=== PATIENT | male | born 1955 | race Caucasian/White ===

== ENCOUNTER 2021-12-19 09:43 | Outpatient (CLI) | payer MEDICARE, OTHER ==
[2021-12-19 11:32] LABS: #Eosinphils 0.5 10x3/uL (0.0-0.5); #Monocytes 0.6 10x3/uL (0.0-1.1); #Neutrophils 3.2 10x3/uL (1.5-8.4); %Basophils 0.6 % (0.0-2.0); %Eosinophils 7.6 % (0.0-6.0); %Lymphocytes 32.9 % (18.0-47.0); %Monocytes 9.1 % (0.0-10.0); %Neutrophils 49.3 % (40.0-75.0); Hemoglobin 16.3 g/dL (13.5-17.5); Mean Corpuscular HGB CONC 33.7 g/dL (32.0-36.0); Mean Corpuscular Hemoglobin 31.8 pg (27.0-33.0); Mean Corpuscular Volume 94.5 fl (81.2-95.1); Mean Platelet Volume 11.6 fl (7.4-10.4); Platelet Count 207 10x3/uL (150-450); RBC Distribution Width 13.3 % (11.5-14.5); Red Blood Cell (RBC) Count 5.12 10x6/uL (4.32-5.72); White Blood Cell (WBC) Count 6.6 10x3/uL (3.5-10.5)
[2021-12-19 11:35] LABS: Anion Gap 16 mmol/L (10-20); BUN (Urea Nitrogen) 13 mg/dL (8.4-25.7); Calc. Creatinine Clearance 0 mL/min (70-130); Carbon Dioxide 23 mmol/L (23-31); Chloride 106 mmol/L (98-107); Estimated GFR 98; Glucose 91 mg/dL (80-115); Potassium 4.9 mmol/L (3.5-5.1); Sodium 140 mmol/L (136-145)
[2021-12-19 11:42] LABS: INR-International Normal Ratio 0.9; Prothrombin Time 10.1 sec (9.5-12.1)
== END 2021-12-19 09:44 | disposition home or self-care (01) ==
LOC: LABBT 09:43
PROVIDERS: ATTEND Orthopaedic Surgery
DX: Z01.818 Encounter for other preprocedural examination (principal); M17.12 Unilateral primary osteoarthritis, left knee; Z20.822 Contact with and (suspected) exposure to COVID-19
CPT/HCPCS: 80048; 85025; 85610; 87081; 87811; 93005; 93010

== ENCOUNTER 2021-12-24 06:14 | Observation (INO) | payer MEDICARE, OTHER ==
[2021-12-20 10:30] VITALS: BMI 35.4
[2021-12-24] MEDS ORDERED: Sodium Chloride 0.9% 100 ML ONE ×2 (07:50→09:00)
[2021-12-24] MEDS ORDERED: Vancomycin (BATCH) 1.5 GRAM/300 ML BAG ONE (07:50)
[2021-12-24] MEDS ORDERED: Tranexamic Acid 1,000 MG/10 ML VIAL ONE (07:50)
[2021-12-24] MEDS ORDERED: Midazolam HCl 2 mg/2 ml Vial ONE (08:03)
[2021-12-24] MEDS ORDERED: Fentanyl 100 MCG/2 ML VIAL ONE ×2 (08:03→11:08)
[2021-12-24] MEDS ORDERED: Acetaminophen 325 MG TAB PO PRN (08:54)
[2021-12-24] MEDS ORDERED: Zolpidem Tartrate 5 MG TAB PO PRN ×2 (08:54→09:30)
[2021-12-24] MEDS ORDERED: Promethazine HCl 25 MG/ML VIAL IM PRN ×2 (08:54→09:30)
[2021-12-24] MEDS ORDERED: HYDROcodone/Acetaminophen 10/325 mg Tablet PO PRN ×3 (08:54→09:30)
[2021-12-24] MEDS ORDERED: Ondansetron PF 4 MG/2 ML Vial IVP PRN ×2 (08:54→09:30)
[2021-12-24] MEDS ORDERED: Fentanyl 100 MCG/2 ML VIAL SLOW IVP PRN ×3 (08:54→09:25)
[2021-12-24] MEDS ORDERED: diphenhydrAMINE 25 MG CAP PO PRN (08:54)
[2021-12-24] MEDS ORDERED: fentaNYL Citrate/PF 100 MCG/2 ML SYRINGE ONE ×2 (09:00→09:39)
[2021-12-24] MEDS ORDERED: Non-Formulary Item 1 EACH (Multivitamin [Multivitamin] 1 EACH Tablet) PO SCH (09:00)
[2021-12-24] MEDS ORDERED: CEFAZOLIN 2 GM VIAL ONE (09:00)
[2021-12-24] MEDS ORDERED: Aspirin 81 mg Enteric Coated Tablet PO SCH (09:00)
[2021-12-24] MEDS ORDERED: Bupivacaine PF 0.5% 30 ML VIAL ONE (09:00)
[2021-12-24] MEDS ORDERED: Ketorolac Tromethamine 30 MG/ML VIAL ONE (09:15)
[2021-12-24] MEDS ORDERED: Ondansetron PF 4 MG/2 ML Vial ONE (09:15)
[2021-12-24] MEDS ORDERED: ePHEDrine 50 MG/ML VIAL ONE (09:15)
[2021-12-24] MEDS ORDERED: Lidocaine 1% PF 5 ML VIAL ONE (09:15)
[2021-12-24] MEDS ORDERED: PROPOFOL 200 MG/20 ML VIAL ONE (09:15)
[2021-12-24] MEDS ORDERED: Dexamethasone 20 MG/5 ML VIAL ONE (09:15)
[2021-12-24] MEDS ORDERED: traMADol HCl 50 MG TAB PO PRN ×2 (09:30)
[2021-12-24] MEDS ORDERED: Ropivacaine 0.2% 550 ML 550 ML NERVE BLCK SCH (09:30)
[2021-12-24] MEDS ORDERED: HYDROmorphone 2 MG/ML VIAL SLOW IVP PRN (09:53)
[2021-12-24] MEDS ORDERED: Promethazine HCl 25 MG/ML VIAL IVPB PRN (09:53)
[2021-12-24] MEDS ORDERED: Ketorolac Tromethamine 30 MG/ML VIAL IVP SCH (14:00)
[2021-12-24] MEDS: Aspirin 81 mg Enteric Coated Tablet PO SCH ×2 (14:27→20:36)
[2021-12-24] MEDS: Sodium Chloride 0.9% 1,000 ML IV SCH ×2 (14:27→18:33)
[2021-12-24] MEDS: Ketorolac Tromethamine 30 MG/ML VIAL IVP SCH ×3 (14:28→23:53)
[2021-12-24] MEDS: Lisinopril 10 MG TAB PO SCH (14:34)
[2021-12-24] MEDS: Tamsulosin HCl 0.4 MG CAP PO SCH (14:34)
[2021-12-24] MEDS: HYDROcodone/Acetaminophen 10/325 mg Tablet PO PRN ×2 (14:34→20:37)
[2021-12-24] MEDS: ALPRAZolam 1 MG TAB PO SCH (14:35)
[2021-12-24] MEDS: CEFAZOLIN 2 GM in Sodium Chloride 0.9% 100 ML IVPB SCH ×2 (17:01→23:54)
[2021-12-25] MEDS: Ketorolac Tromethamine 30 MG/ML VIAL IVP SCH (04:56)
[2021-12-25] MEDS: Sodium Chloride 0.9% 1,000 ML IV SCH (05:36)
[2021-12-25 06:49] LABS: Hemoglobin 13.8 g/dL (14.0-18.0); Mean Corpuscular Hemoglobin 33.2 pg (27.0-31.0); Mean Platelet Volume 10.1 fL (7.4-10.4); Platelet Count 171 thou/uL (130-400); RBC Distribution Width 12.6 % (11.5-14.5); Red Blood Cell (RBC) Count 4.15 mill/uL (4.70-6.10); White Blood Cell (WBC) Count 11.6 thou/uL (4.8-10.8)
[2021-12-25 07:38] VITALS: TEMP 97.7
[2021-12-25] MEDS ORDERED: Ferrous Gluconate 324 MG TAB PO SCH (08:00)
[2021-12-25] MEDS: ALPRAZolam 1 MG TAB PO SCH (08:24)
[2021-12-25] MEDS: Tamsulosin HCl 0.4 MG CAP PO SCH (08:25)
[2021-12-25] MEDS: Aspirin 81 mg Enteric Coated Tablet PO SCH (08:25)
[2021-12-25] MEDS: Lisinopril 10 MG TAB PO SCH (08:26)
[2021-12-25 08:28] VITALS: BP 163/97
[2021-12-25] MEDS ORDERED: Senokot S 8.6-50 MG TAB PO SCH (09:00)
[2021-12-25] MEDS ORDERED: Multivitamin W/ Minerals 1 TAB PO SCH (09:00)
[2021-12-27] MEDS ORDERED: Meloxicam 15 MG TAB PO SCH (09:00)
== END 2021-12-25 10:35 | disposition home or self-care (01) ==
LOC: SDC 06:14 → SURG A 08:54 → SDC 17:57
PROVIDERS: ADMIT Orthopaedic Surgery; ATTEND Orthopaedic Surgery
PROC: 0SRD069 Replacement of Left Knee Joint with Oxidized Zirconium on Polyethylene Synthetic Substitute, Cemented, Open Approach (ICD-10-PCS; principal; 2021-12-24)
PROC: 8E0YXBZ Computer Assisted Procedure of Lower Extremity (ICD-10-PCS; 2021-12-24)
DX: M17.0 Bilateral primary osteoarthritis of knee (principal); I10 Essential (primary) hypertension; N40.0 Benign prostatic hyperplasia without lower urinary tract symptoms; F17.290 Nicotine dependence, other tobacco product, uncomplicated; E66.9 Obesity, unspecified; Z68.35 Body mass index [BMI] 35.0-35.9, adult; Z79.899 Other long term (current) drug therapy
CPT/HCPCS: 20985; 27447; 73560; 85027; 96365; 96375; 96376 ×2; 97110 ×2; 97116 ×2; 97530; A4306; C1713; C1776; G0378 ×2; J3370; 36415; J0690; J1100; J1885; J2250; J2405; J2704; J2795; J3010; J3490; S0020

== ENCOUNTER 2022-07-29 05:28 | Observation (INO) | payer MEDICARE, OTHER ==
[2022-07-28 10:11] VITALS: BMI 36.5
[2022-07-29] MEDS ORDERED: Tranexamic Acid 1,000 MG/10 ML VIAL ONE (06:06)
[2022-07-29] MEDS ORDERED: Sodium Chloride 0.9% 100 ML ONE ×2 (06:06→07:01)
[2022-07-29] MEDS ORDERED: Vancomycin (BATCH) 1.5 GRAM/300 ML BAG ONE (06:06)
[2022-07-29] MEDS ORDERED: Fentanyl 250 MCG/5 ML VIAL ONE (06:19)
[2022-07-29] MEDS ORDERED: Dexmedetomidine 200 MCG/2 ML VIAL ONE (06:19)
[2022-07-29] MEDS ORDERED: Bupivacaine PF 0.5% 30 ML VIAL ONE ×2 (06:25→06:40)
[2022-07-29] MEDS ORDERED: Midazolam HCl 2 mg/2 ml Vial ONE (06:39)
[2022-07-29] MEDS ORDERED: Fentanyl 100 MCG/2 ML VIAL ONE ×3 (06:39→09:46)
[2022-07-29] MEDS ORDERED: Lidocaine 1% (PF) 30 ML VIAL ONE (06:40)
[2022-07-29] MEDS ORDERED: Dexamethasone 20 MG/5 ML VIAL ONE (06:44)
[2022-07-29] MEDS ORDERED: Ondansetron PF 4 MG/2 ML Vial ONE (06:44)
[2022-07-29] MEDS ORDERED: ePHEDrine 50 MG/ML VIAL ONE (06:44)
[2022-07-29] MEDS ORDERED: PROPOFOL 200 MG/20 ML VIAL ONE (06:44)
[2022-07-29] MEDS ORDERED: Promethazine HCl 25 MG/ML VIAL IM PRN ×2 (06:52→07:15)
[2022-07-29] MEDS ORDERED: Fentanyl 100 MCG/2 ML VIAL SLOW IVP PRN ×2 (06:52→07:09)
[2022-07-29] MEDS ORDERED: Ondansetron PF 4 MG/2 ML Vial IVP PRN ×2 (06:52→07:15)
[2022-07-29] MEDS ORDERED: Acetaminophen 325 MG TAB PO PRN (06:52)
[2022-07-29] MEDS ORDERED: HYDROcodone/Acetaminophen 10/325 mg Tablet PO PRN ×3 (06:52→07:15)
[2022-07-29] MEDS ORDERED: diphenhydrAMINE 25 MG CAP PO PRN (06:52)
[2022-07-29] MEDS ORDERED: Zolpidem Tartrate 5 MG TAB PO PRN ×2 (06:52→07:15)
[2022-07-29] MEDS ORDERED: CEFAZOLIN 2 GM VIAL ONE (07:01)
[2022-07-29] MEDS ORDERED: Ropivacaine 0.2% 550 ML 550 ML NERVE BLCK SCH (07:15)
[2022-07-29] MEDS ORDERED: traMADol HCl 50 MG TAB PO PRN ×2 (07:15)
[2022-07-29 07:25] LABS: SARS-CoV-2 NAA Rapid Test DETECTED (NotDetected)
[2022-07-29] MEDS ORDERED: EPINEPHrine 1 MG/ML AMP ONE (08:50)
[2022-07-29] MEDS ORDERED: Aspirin 81 mg Enteric Coated Tablet PO SCH (09:00)
[2022-07-29] MEDS ORDERED: Non-Formulary Item 1 EACH (Multivitamin [Multivitamin] 1 EACH Tablet) PO SCH (09:00)
[2022-07-29] MEDS ORDERED: Ketorolac Tromethamine 30 MG/ML VIAL ONE (11:42)
[2022-07-29] MEDS: Ketorolac Tromethamine 30 MG/ML VIAL IVP SCH ×3 (11:44→23:37)
[2022-07-29] MEDS ORDERED: Ketorolac Tromethamine 30 MG/ML VIAL IVP SCH (14:00)
[2022-07-29] MEDS: HYDROcodone/Acetaminophen 10/325 mg Tablet PO PRN (16:37)
[2022-07-29] MEDS: CEFAZOLIN 2 GM in Sodium Chloride 0.9% 100 ML IVPB SCH ×2 (16:40→23:36)
[2022-07-29] MEDS: ALPRAZolam 1 MG TAB PO SCH (16:52)
[2022-07-29] MEDS: Aspirin 81 mg Enteric Coated Tablet PO SCH ×2 (16:53→20:34)
[2022-07-29] MEDS: Tamsulosin HCl 0.4 MG CAP PO SCH (16:53)
[2022-07-29] MEDS: Lisinopril 10 MG TAB PO SCH (16:53)
[2022-07-30] MEDS: Ketorolac Tromethamine 30 MG/ML VIAL IVP SCH (05:18)
[2022-07-30 06:54] LABS: Hemoglobin 13.8 g/dL (14.0-18.0); Mean Corpuscular HGB CONC 33.4 g/dL (32.0-36.0); Mean Corpuscular Volume 98.7 fl (78.0-98.0); Mean Platelet Volume 9.8 fL (7.4-10.4); Platelet Count 164 10x3/uL (130-400); RBC Distribution Width 13.1 % (11.5-14.5); Red Blood Cell (RBC) Count 4.19 mill/uL (4.70-6.10); White Blood Cell (WBC) Count 12.8 10x3/uL (4.8-10.8)
[2022-07-30 07:54] VITALS: BP 153/83; TEMP 97.6
[2022-07-30] MEDS: ALPRAZolam 1 MG TAB PO SCH (07:56)
[2022-07-30] MEDS: Aspirin 81 mg Enteric Coated Tablet PO SCH (07:56)
[2022-07-30] MEDS: Lisinopril 10 MG TAB PO SCH (07:57)
[2022-07-30] MEDS: Tamsulosin HCl 0.4 MG CAP PO SCH (07:57)
[2022-07-30] MEDS: HYDROcodone/Acetaminophen 10/325 mg Tablet PO PRN (07:57)
[2022-07-30] MEDS ORDERED: Ferrous Gluconate 324 MG TAB PO SCH (08:00)
[2022-07-30] MEDS ORDERED: Senokot S 8.6-50 MG TAB PO SCH (09:00)
[2022-07-30] MEDS ORDERED: Multivitamin W/ Minerals 1 TAB PO SCH (09:00)
== END 2022-07-30 11:11 | disposition home health service (06) ==
LOC: SDC 05:28 → SURG A 12:21
PROVIDERS: ADMIT Orthopaedic Surgery; ATTEND Orthopaedic Surgery
PROC: 0SRC0J9 Replacement of Right Knee Joint with Synthetic Substitute, Cemented, Open Approach (ICD-10-PCS; principal; 2022-07-29)
DX: M17.11 Unilateral primary osteoarthritis, right knee (principal); U07.1 COVID-19; I10 Essential (primary) hypertension; Z79.1 Long term (current) use of non-steroidal anti-inflammatories (NSAID); Z79.82 Long term (current) use of aspirin; Z79.899 Other long term (current) drug therapy; Z96.652 Presence of left artificial knee joint
CPT/HCPCS: 20985; 27447; 73560; 85027; 96365; 96375; 96376 ×2; 97110 ×2; 97116 ×2; 97530; A4306; C1713; C1776; G0378 ×2; J3370; U0002; 36415; J0171; J1100; J1885; J2001; J2250; J2405; J2704; J2795; J3010; J3490; S0020